=== PATIENT | female | born 1950 | race Caucasian/White ===

== ENCOUNTER → 2021-04-11 | Outpatient (CLI) | payer MEDICARE, MEDICAID ==
[~2021-04-11] MED LIST: *Pletal50 MG PO; AMLODIPINE10 MG PO; AMLODIPINE5 MG PO; BENICAR5 MG PO; BIAXIN500 MG PO; CLARITIN10 MG PO; INDOCIN25 MG PO; LASIX20 MG PO; LISINOPRIL HCTZ1 TA1 PO; LISINOPRIL/HCTZ1 TAB PO; LISINOPRIL2.5 MG PO; LOPRESSOR PO; LOVASTATIN10 MG PO; LOVASTATIN40 MG PO; MEDROL DOSEPAK4 MG PO; Oxycodone/Apap1 TA1 PO; PEPCID20 MG PO; PREDNISONE10 MG PO; PROAIR HFA0.09 MG/AC IH; PROVENTIL0.09 MG/AC IH; TOPROL XL50 MG PO; VENTOLIN 02.5 MG/3 M INH; ZITHROMAX Z PA250 MG PO; [UNRECOGNIZED DRUG - MIXTURE] PO
== END | disposition home or self-care (01) ==
LOC: MAMMO 04-04 11:00
PROVIDERS: ATTEND Internal Medicine
DX: Z12.31 Encounter for screening mammogram for malignant neoplasm of breast (principal)

== ENCOUNTER → 2023-05-13 | Outpatient (CLI) | payer OTHER, MEDICAID | END | disposition home or self-care (01) | LOC: US 14:29 | PROVIDERS: ATTEND Nurse Practitioner Family | DX: M79.89 Other specified soft tissue disorders (principal); L60.8 Other nail disorders; Z87.891 Personal history of nicotine dependence; Z87.828 Personal history of other (healed) physical injury and trauma ==

== ENCOUNTER → 2023-06-05 | Outpatient (CLI) | payer OTHER, MEDICAID | END | disposition home or self-care (01) | LOC: US 14:32 | PROVIDERS: ATTEND Nurse Practitioner Family | DX: M79.89 Other specified soft tissue disorders (principal) ==

== ENCOUNTER 2023-06-11 15:52 | Emergency (ER) | payer OTHER, MEDICAID ==
[~2023-06-11] VITALS: Ht 170.1 cm; Wt 90.7 kg
[~2023-06-11 15:52] MED LIST changes: -AMLODIPINE BESYL5 MG PO; -ATORVASTATIN CA10 M1 PO; -HYDROCHLOROTHIA50 M1 PO; -METOPROLOL25 MG PO; -ZESTRIL40 MG PO
[2023-06-11] MEDS ORDERED: SODIUM CHLORIDE 0.9% 100 ML BAG IV ONE (16:50)
[2023-06-11] MEDS ORDERED: IOHEXOL 350 MG/ML 100 ML VIAL IV ONE (16:50)
[2023-06-11] MEDS ORDERED: METOPROLOL25 MG PO ×2 (16:55→16:56)
[2023-06-11] MEDS ORDERED: HYDROCHLOROTHIA50 M1 PO (16:57)
[2023-06-11] MEDS ORDERED: ATORVASTATIN CA10 M1 PO (16:57)
[2023-06-11] MEDS ORDERED: ZESTRIL40 MG PO (16:58)
[2023-06-11] MEDS ORDERED: AMLODIPINE BESYL5 MG PO (16:58)
[2023-06-11 16:59] LABS: BASO # 0.1 10*3/uL (0.0-0.1); BASO % 0.7 % (0.0-1.0); EOS # 0.4 10*3/uL (0.0-0.4); EOS % 5.4 % (1.0-4.0); HEMATOCRIT 40.2 % (37.0-47.0); LYMPH # 1.8 10*3/uL (1.3-4.4); LYMPH % 25.1 % (27.0-41.0); MEAN CELL VOLUME 93.1 fl (81.0-99.0); MEAN CORPUSCULAR HGB 27.5 pg (27.0-31.0); MEAN CORPUSCULAR HGB CONC 29.6 g/dl (33.0-37.0); MEAN PLATELET VOLUME 9.9 fl (9.6-12.3); MONO # 0.5 10*3/uL (0.1-1.0); MONO % 6.7 % (3.0-9.0); NEUT # 4.4 10*3/uL (2.3-7.9); PLATELET COUNT AUTOMATED 270 10*3/uL (130-400); RED BLOOD COUNT 4.32 10*6/uL (4.10-5.10); RED CELL DISTRI WIDTH 14.8 % (0-14.5); WHITE BLOOD COUNT 7.1 10*3/uL (4.8-10.8)
[2023-06-11 17:17] LABS: POTASSIUM 4.5 mmol/L (3.4-5.1)
[2023-06-11] MEDS ORDERED: HEPARIN SODIUM 250 ML IV SCH (21:15)
[2023-06-12 08:37] VITALS: BP 131/69
== END 2023-06-12 11:58 | disposition home or self-care (01) ==
LOC: ED 15:52
PROVIDERS: Student in an Organized Health Care Education/Training Program
DX: I70.202 Unspecified atherosclerosis of native arteries of extremities, left leg (principal); I70.201 Unspecified atherosclerosis of native arteries of extremities, right leg; I10 Essential (primary) hypertension; I25.2 Old myocardial infarction; Z98.890 Other specified postprocedural states

== ENCOUNTER → 2023-06-11 | Outpatient (CLI) | payer OTHER, MEDICAID ==
[~2023-06-11] MED LIST changes: +AMLODIPINE BESYL5 MG PO; +ATORVASTATIN CA10 M1 PO; +HYDROCHLOROTHIA50 M1 PO; +METOPROLOL25 MG PO; +ZESTRIL40 MG PO
== END | disposition home or self-care (01) ==
LOC: US 14:23
PROVIDERS: ATTEND Nurse Practitioner Family
DX: L03.116 Cellulitis of left lower limb (principal); M79.605 Pain in left leg; M79.604 Pain in right leg; L60.8 Other nail disorders; Z72.0 Tobacco use